=== PATIENT | male | born 1945 | race Caucasian/White ===

== ENCOUNTER 2022-07-02 06:54 | Day surgery (SDC) | payer OTHER ==
--- NOTE | 2022-06-28 09:47 | RAD REPORT ---
EXAM DESCRIPTION: Rita Pa And Lat (2 Views)06/28/2022 9:08 am CLINICAL HISTORY: pre op pending cyst removal COMPARISON: No comparisons TECHNIQUE: PA and lateral views of the chest. FINDINGS: The lungs are clear.Diffuse hyperinflation and hyperlucency. Biapical scarring. Findings m ay relate to COPD. No pneumothorax or effusion. The cardiomediastinal contours are unremarkable. IMPRESSION: No acute cardiopulmonary process.
--- NOTE | 2022-06-28 14:26 | EKG ---
Test Date: 2022-06-28 Test Time: 08:43:31 Banquet Steward: CRISTELA MEASUREMENT RESULTS: Intervals: Rate: 75 ND: 146 QRSD: 74 QT: 370 QTc: 413 Albright: P: 62 ND: 146 QRS: -8 T: 39 INTERPRETIVE STATEMENTS: Normal sinus rhythm Low voltage QRS Septal infarct, age undetermined Abnormal ECG No previous ECG available for comparison Electronically Signed On 06-28-22 14:25:30 CDT by Erick Morales
[2022-07-02] MEDS ORDERED: CEFAZOLIN SODIUM 1 GM/VIAL ONE (07:20)
[2022-07-02] MEDS ORDERED: Ringers Lactate 1,000 ML IV ONE (07:21)
[2022-07-02] MEDS ORDERED: BUPIVACAINE 0.5% PF 10 ML VIAL ONE (08:02)
[2022-07-02] MEDS ORDERED: LIDOCAINE 2% MPF 5 ML VIAL ONE (08:26)
[2022-07-02] MEDS ORDERED: propofoL 200 MG/20 ML VIAL IV ONE (08:26)
[2022-07-02] MEDS ORDERED: MIDAZOLAM HCL 2 MG/2 ML INJ ONE (08:26)
[2022-07-02] MEDS ORDERED: FENTANYL CITR 100 MCG/2 ML ONE (08:26)
[2022-07-02] MEDS ORDERED: ONDANSETRON 4 MG/2 ML VIAL ONE (08:47)
[2022-07-02] MEDS ORDERED: KETOROLAC 30 MG/ML INJ ONE (09:05)
--- NOTE | 2022-07-02 09:19 | P.OP ---
Date of Service: 07/02/22 Preop diagnosis: Left buttock mass Postop diagnosis: Same Procedure performed: Wide excision left buttock mass 4 x 2 cm with layered c losure Surgeon: Nico Rodriguez MD Entry Level Staff Accountant: None Estimated blood loss: Minimal Specimen: Left buttock mass Findings: Benign cyst Anesthesia: MAC Complications: None Drains: None Fluids and blood products: Nonapplicable Disposition: Recovery room Operative note: Patient brought to the OR and placed in the supine position. MAC anesthesia begun. Patient placed in the left lateral position. Patient prepped and draped in the usual sterile fashion. Marcaine 0.5% infiltrated locally. 15 blade used to make a 4 x 2 cm incision to include this mass. Mass was hard and consistent with benign cyst. Subcutaneous tissue divided. Bleeding controlled with cautery. Entire mass excised and sent to pathology. Wound irrigated. Bleeding controlled cautery. Flaps created. 3-0 chromic used to reapproximate subcutaneous tissue. 4 nylon used to close skin. Sterile dressing applied. Patient awakened and taken to recovery room in good general condition. CC: Dr. Juarez's office
[2022-07-02] MEDS ORDERED: HYDROCODONE/APAP 5/325 MG TAB PO PRN (09:25)
[2022-07-02 09:26] VITALS: O2SAT 100
[2022-07-02 10:52] VITALS: BP 134/61; TEMP 97
== END 2022-07-02 10:37 | disposition home or self-care (01) ==
LOC: OR 06:54
PROVIDERS: ATTEND Surgery
PROC: 0JB90ZZ Excision of Buttock Subcutaneous Tissue and Fascia, Open Approach (ICD-10-PCS; principal; 2022-07-02 08:30)
DX: E83.59 Other disorders of calcium metabolism (principal); Z88.2 Allergy status to sulfonamides
CPT/HCPCS: 93005; 88304; 88311; 71046; 11404; J2704; J2001; J2250; J2405; J7120; J0690; J3010